=== PATIENT | female | born 1995 | race Caucasian/White ===

== ENCOUNTER 2020-11-05 15:20 | Emergency (ER) | payer OTHER ==
[2020-11-05 17:04] LABS: BASOPHIL 0.5 % (0-2); EOSINOPHIL 1.2 % (0-5); HGB 12.9 g/dl (12.5-16.0); MCH 28.7 pg (25.0-31.0); MCHC 33.1 g/dL (32.0-36.0); MCV 86.7 fL (78.0-100.0); MONOCYTE 8.5 % (0-12); MPV 9.6 fL (6.0-9.5); NEUTROPHIL 58.6 % (41-80); NRBC 0; PLT 329 K/uL (150-400); RDW 12.6 % (11.5-14.0)
[2020-11-05 17:22] LABS: BILIRUBIN NEGATIVE (NEGATIVE); BLOOD 3+ Ery/uL (NEGATIVE); CLARITY CLOUDY (CLEAR); COLOR YELLOW (YELLOW); GLUCOSE (U) NORMAL (NORMAL); LEUKOCYTES NEGATIVE Leu/uL (NEGATIVE); MUCOUS MODERATE; NITRITE NEGATIVE (NEGATIVE); PROTEIN TRACE (LOW) mg/dL (NEGATIVE); SQUAMOUS EPITHELIAL CELLS >50; URINARY RBC 20-50; URINARY WBC RARE; UROBILINOGEN 0.2 mg/dL (0.2-1.0)
[2020-11-05 17:23] LABS: BACTERIA 1+
[2020-11-05 17:26] LABS: BILIRUBIN - TOTAL 0.3 mg/dL (0.2-1.0); BUN/CREAT RATIO (CALC) 18.2 RATIO; CREATININE 0.77 mg/dL (0.51-0.95); GLOBULIN (CALCULATION) 4.1 g/dL; POTASSIUM 3.8 mmol/L (3.5-5.1); TOTAL PROTEIN 8.1 g/dL (6.4-8.2)
[2020-11-05] MEDS ORDERED: XARELTO15 MG PO (18:43)
== END 2020-11-05 19:19 | disposition home or self-care (01) ==
LOC: FER 15:20
PROVIDERS: Nurse Practitioner Family
DX: I82.621 Acute embolism and thrombosis of deep veins of right upper extremity (principal); Z88.1 Allergy status to other antibiotic agents; Z88.8 Allergy status to other drugs, medicaments and biological substances
CPT/HCPCS: 36415; 70450; 70491; 80053; 81001; 85025; 87088; J1885; J7030; Q9967